=== PATIENT | female | born 1965 | race Caucasian/White ===

== ENCOUNTER → 2020-10-06 | Day surgery (SDC) | payer MEDICARE, SELFPAY ==
[~2020-10-06] MED LIST: CYCLOBENZAPRINE10 MG PO; ENDOCET 5-3251 EACH PO; FLUOXETINE HCL40 MG PO; IBUPROFEN600 MG PO; LEVOTHYROXINE75 MC1 PO; LINZESS145 MCG PO; MEDROL4 MG PO; NEXIUM40 MG PO; NORFLEX 100 MG100 MG PO; OMNICEF 300 MG300 MG PO; PREMARIN 0.60.625 MG PO; TROKENDI XR50 MG PO; ZOFRAN ODT 4 MG4 MG PO; ZOFRAN ODT 4 MG4 MG SL
[2020-10-15 18:12] LABS: CA OXALATE DIHYDRATE 50 % (.); CALCIUM OXALATE MONOHYDRATE 20 % (.); COLOR Brown (.); HYDROXYAPATITE 30 % (.); SIZE 4x4 mm (.); WEIGHT 15 mg (.)
== END | disposition home or self-care (01) ==
LOC: OR 11:32
PROVIDERS: Urology
DX: N20.1 Calculus of ureter (principal); K29.80 Duodenitis without bleeding; K21.9 Gastro-esophageal reflux disease without esophagitis; M54.12 Radiculopathy, cervical region; M47.816 Spondylosis without myelopathy or radiculopathy, lumbar region; M51.36 Other intervertebral disc degeneration, lumbar region; M51.26 Other intervertebral disc displacement, lumbar region; M75.00 Adhesive capsulitis of unspecified shoulder; M19.019 Primary osteoarthritis, unspecified shoulder; J30.9 Allergic rhinitis, unspecified; K59.03 Drug induced constipation; T40.2X5A Adverse effect of other opioids, initial encounter; F41.9 Anxiety disorder, unspecified; F32.9 Major depressive disorder, single episode, unspecified; G43.909 Migraine, unspecified, not intractable, without status migrainosus; M79.7 Fibromyalgia; E03.9 Hypothyroidism, unspecified; E87.6 Hypokalemia
CPT/HCPCS: C1769; C1894; C2617; J1100; J1956; J2001; J2250; J2405; J2704; J2765; J3010; J7120

== ENCOUNTER 2020-10-09 09:40 | Emergency (ER) | payer MEDICARE, SELFPAY | END 2020-10-09 11:09 | disposition home or self-care (01) | LOC: ER1 09:40 | DX: Z46.6 Encounter for fitting and adjustment of urinary device (principal); R31.9 Hematuria, unspecified; R30.0 Dysuria; Z87.442 Personal history of urinary calculi; Z90.49 Acquired absence of other specified parts of digestive tract; Z98.890 Other specified postprocedural states | CPT/HCPCS: 99283 ==

== ENCOUNTER 2021-06-30 18:06 | Inpatient (IN) | payer BC ==
[~2021-06-30] VITALS: Ht 160 cm; Wt 56.2 kg
[2021-06-30 19:36] LABS: RED BLOOD COUNT 4.38 M/UL (4.00-5.10); WHITE BLOOD COUNT 5.7 K/UL (4.5-11.0)
[2021-06-30] MEDS ORDERED: AMITRIPTYLINE H25 MG PO (23:48)
[2021-07-01 03:31] LABS: HEMOGLOBIN 12.1 gm/dl (12.3-15.3); RED BLOOD COUNT 4.1 M/UL (4.00-5.10)
[2021-07-01 03:54] LABS: BUN/CREATININE RATIO 29 (0-10)
[2021-07-01 13:19] LABS: HEMOGLOBIN 12.1 gm/dl (12.3-15.3); RED BLOOD COUNT 4.03 M/UL (4.00-5.10)
[2021-07-01 13:27] LABS: WHITE BLOOD COUNT 12.7 K/UL (4.5-11.0)
[2021-07-02 07:15] LABS: HEMOGLOBIN 9.5 gm/dl (12.3-15.3); RED BLOOD COUNT 3.31 M/UL (4.00-5.10); WHITE BLOOD COUNT 12.3 K/UL (4.5-11.0)
[2021-07-02 07:50] LABS: BUN/CREATININE RATIO 26 (0-10)
[2021-07-03] MEDS ORDERED: ENOXAPARIN40 MG/0.4 SC (10:32)
== END 2021-07-03 17:56 | disposition home health service (06) | DRG 481 ==
LOC: ER1 18:06 → CDU 20:28 → M/S 20:28
PROVIDERS: Internal Medicine; Orthopaedic Surgery; Student in an Organized Health Care Education/Training Program; ADMIT Internal Medicine
PROC: 0QS706Z Reposition Left Upper Femur with Intramedullary Internal Fixation Device, Open Approach (ICD-10-PCS; principal; 2021-07-01 07:30)
DX: S72.142A Displaced intertrochanteric fracture of left femur, initial encounter for closed fracture (principal); Z20.822 Contact with and (suspected) exposure to COVID-19; D62 Acute posthemorrhagic anemia; G43.909 Migraine, unspecified, not intractable, without status migrainosus; E03.9 Hypothyroidism, unspecified; F41.9 Anxiety disorder, unspecified; K21.9 Gastro-esophageal reflux disease without esophagitis; S72.22XA Displaced subtrochanteric fracture of left femur, initial encounter for closed fracture; W01.0XXA Fall on same level from slipping, tripping and stumbling without subsequent striking against object, initial encounter; K58.9 Irritable bowel syndrome, unspecified; F32.9 Major depressive disorder, single episode, unspecified; Z87.442 Personal history of urinary calculi; Z90.49 Acquired absence of other specified parts of digestive tract; Z90.710 Acquired absence of both cervix and uterus; Z88.8 Allergy status to other drugs, medicaments and biological substances; Z88.6 Allergy status to analgesic agent; Z82.49 Family history of ischemic heart disease and other diseases of the circulatory system
CPT/HCPCS: 36415; 71045; 73502; 73552; 76000; 80048; 80053; 85025; 85027; 93005; 96374; 96375; 97110; 97110-GP-CQ; 97116-GP-CQ; 97161; 97166; 97535; 99284; C1713; G0378; J0171; J0690; J1100; J1170; J1650; J2001; J2250; J2270; J2370; J2405; J2704; J2795; J3010; J7120; U0002

== ENCOUNTER 2021-07-05 20:02 | Emergency (ER) | payer BC ==
[~2021-07-05 20:02] MED LIST changes: +AMITRIPTYLINE H25 MG PO; +ENOXAPARIN40 MG/0.4 SC
[2021-07-05 21:31] LABS: RED BLOOD COUNT 3.38 M/UL (4.00-5.10); WHITE BLOOD COUNT 13.5 K/UL (4.5-11.0)
[2021-07-05 21:55] LABS: BUN/CREATININE RATIO 31 (0-10)
[2021-07-06] MEDS ORDERED: SENOKOT-S TABL1 EACH PO (06:32)
[2021-07-06] MEDS ORDERED: ZOFRAN ODT 4 MG4 MG PO (06:32)
[2021-07-06] MEDS ORDERED: POTASSIUM CHLO20 ME1 PO (06:38)
== END 2021-07-06 07:41 | disposition home or self-care (01) ==
LOC: ER1 20:02
PROVIDERS: Family Medicine
DX: K56.7 Ileus, unspecified (principal); K59.00 Constipation, unspecified; E87.6 Hypokalemia; F11.90 Opioid use, unspecified, uncomplicated; Z90.49 Acquired absence of other specified parts of digestive tract; Z90.710 Acquired absence of both cervix and uterus; Z90.89 Acquired absence of other organs
CPT/HCPCS: 71045; 74018; 80053; 82550; 82553; 83874; 84484; 85025; 85379; 93005; 99285; Q9967

== ENCOUNTER → 2021-09-21 | Outpatient (CLI) | payer MEDICARE ==
[~2021-09-21] MED LIST changes: +POTASSIUM CHLO20 ME1 PO; +SENOKOT-S TABL1 EACH PO
== END ==
LOC: MRI 09-17 14:00
DX: R10.84 Generalized abdominal pain (principal)
CPT/HCPCS: 74183; A9577

== ENCOUNTER 2021-11-04 13:31 | Emergency (ER) | payer MEDICARE ==
[2021-11-04] MEDS ORDERED: MIRALAX 119 GR119 GM PO (15:28)
[2021-11-04] MEDS ORDERED: DULCOLAX5 MG PO (15:28)
== END 2021-11-04 15:37 | disposition home or self-care (01) ==
LOC: ER1 13:31
DX: K59.00 Constipation, unspecified (principal); K21.9 Gastro-esophageal reflux disease without esophagitis; E03.9 Hypothyroidism, unspecified; Z88.8 Allergy status to other drugs, medicaments and biological substances; Z87.442 Personal history of urinary calculi
CPT/HCPCS: 74019; 99283

== ENCOUNTER → 2021-11-09 | Outpatient (CLI) | payer MEDICARE ==
[~2021-11-09] MED LIST changes: +DULCOLAX5 MG PO; +MIRALAX 119 GR119 GM PO
== END ==
LOC: MAMO 12:22
DX: Z12.31 Encounter for screening mammogram for malignant neoplasm of breast (principal)
CPT/HCPCS: 77063; 77067

== ENCOUNTER 2021-12-03 16:54 | Emergency (ER) | payer MEDICARE ==
[2021-12-03 20:00] LABS: HEMOGLOBIN 9.6 gm/dl (12.3-15.3); RED BLOOD COUNT 3.61 M/UL (4.00-5.10); WHITE BLOOD COUNT 12.6 K/UL (4.5-11.0)
== END 2021-12-04 00:20 | disposition short-term general hospital (02) ==
LOC: ER1 16:54
PROVIDERS: Physician Assistant
DX: A41.9 Sepsis, unspecified organism (principal); R65.10 Systemic inflammatory response syndrome (SIRS) of non-infectious origin without acute organ dysfunction; N13.6 Pyonephrosis; Z20.822 Contact with and (suspected) exposure to COVID-19; E87.6 Hypokalemia; Z88.8 Allergy status to other drugs, medicaments and biological substances; Z87.442 Personal history of urinary calculi
CPT/HCPCS: 80053; 81001; 82150; 83605; 83690; 84703; 85025; 87040; 93005; 96374; 96375; 96376; 99285; J0696; J1885; J2270; J2405; J7030; Q9967; U0002

== ENCOUNTER → 2021-12-29 | Outpatient (CLI) | payer MEDICARE | LOC: KOH-I 12-22 11:15 | DX: R41.3 Other amnesia (principal); G93.89 Other specified disorders of brain | CPT/HCPCS: 70551 ==

== ENCOUNTER → 2022-01-25 | Outpatient (CLI) | payer MEDICARE | LOC: KOH-I 01-18 15:00 | DX: M79.89 Other specified soft tissue disorders (principal) | CPT/HCPCS: 76536 ==

== ENCOUNTER → 2022-02-08 | Outpatient (CLI) | payer MEDICARE | LOC: EXRD 10:02 | DX: R79.89 Other specified abnormal findings of blood chemistry (principal); Z90.49 Acquired absence of other specified parts of digestive tract | CPT/HCPCS: 76705 ==

== ENCOUNTER → 2022-02-15 | Outpatient (CLI) | payer MEDICARE | LOC: EXRD 09:55 | DX: M25.552 Pain in left hip (principal); S72.142D Displaced intertrochanteric fracture of left femur, subsequent encounter for closed fracture with routine healing; S72.002D Fracture of unspecified part of neck of left femur, subsequent encounter for closed fracture with routine healing | CPT/HCPCS: 73502; 73552 ==